=== PATIENT | male | born 1945 | race Caucasian/White ===

== ENCOUNTER 2018-01-29 13:25 | Inpatient (IN) | payer MEDICARE, BC ==
[~2018-01-29] VITALS: Ht 185.4 cm; Wt 113.4 kg
[2018-01-29 13:27] VITALS: BP 142/80
[2018-01-29 14:01] LABS: ABSOLUTE LYMPHOCYTES 0.6 thou/uL (0.8-5.3); ABSOLUTE MONOCYTES 0.6 thou/uL (0.0-1.2); ABSOLUTE NEUTROPHILS 12.5 thou/uL (1.6-8.1); BASOPHILS 0.2 %; EOSINOPHILS 0.3 %; HEMATOCRIT 38.9 % (42.0-52.0); HEMOGLOBIN 13.4 gm/dL (14.0-18.0); LYMPHOCYTES 4.5 %; MCH 30.7 pg (26.0-34.0); MCHC 34.5 g/dL (28.0-37.0); MONOCYTES 4.5 %; MPV 7.3 fl. (7.2-11.1); NUCLEATED RBCS 0 /100WBC; PLATELET COUNT* 259 thou/uL (150-400); POLYS 90.5 %; RBC 4.37 mil/uL (4.50-6.00); RDW-CV 15.3 % (10.5-14.5); WBC 13.9 thou/uL (4.0-11.0)
[2018-01-29] MEDS ORDERED: ASPIR 8181 MG PO (14:09)
[2018-01-29] MEDS ORDERED: CALCIUM 600 +1 EAC1 PO (14:09)
[2018-01-29] MEDS ORDERED: LIPITOR 20 MG T20 M1 PO (14:09)
[2018-01-29] MEDS ORDERED: SINEMET 25-1001 EAC1 PO (14:10)
[2018-01-29 14:12] LABS: ANION GAP 10 mmol/L (7-16); BUN 9 mg/dL (7-18); CALCIUM 8.7 mg/dL (8.5-10.1); CHLORIDE 84 mmol/L (98-107); CO2 27 mmol/L (21-32); CREATININE 0.8 mg/dL (0.6-1.3); GLUCOSE 89 mg/dL (70-99); POTASSIUM 3.6 mmol/L (3.5-5.1); SODIUM 121 mmol/L (136-145)
[2018-01-29] MEDS ORDERED: CLONAZEPAM 0.50.5 M1 PO (14:12)
[2018-01-29] MEDS ORDERED: VITAMIN B-12500 MCG PO (14:13)
[2018-01-29] MEDS ORDERED: FISH OIL 1,001000 M2 PO (14:14)
[2018-01-29] MEDS ORDERED: AMARYL2 MG PO (14:14)
[2018-01-29] MEDS ORDERED: FOLIC ACID1 MG PO (14:14)
[2018-01-29] MEDS ORDERED: LEXAPRO20 MG PO (14:14)
[2018-01-29] MEDS ORDERED: LACTULOSE10 GM/152 PO (14:15)
[2018-01-29] MEDS ORDERED: METAMUCIL0.52 GM PO (14:15)
[2018-01-29] MEDS ORDERED: OXYBUTYNIN 5 MG5 M2 PO (14:16)
[2018-01-29] MEDS ORDERED: SINGULAIR 10 MG10 M1 PO (14:16)
[2018-01-29] MEDS ORDERED: METFORMIN HCL500 MG PO ×2 (14:16)
[2018-01-29] MEDS ORDERED: VENTOLIN HFA 1818 GM INH (14:17)
[2018-01-29] MEDS ORDERED: PENTOXIFYLLINE400 MG PO (14:17)
[2018-01-29] MEDS ORDERED: PROTONIX40 M1 PO (14:17)
[2018-01-29] MEDS ORDERED: VITAMIN D3400 UNIT PO (14:18)
[2018-01-29] MEDS ORDERED: SPIRIVA INH (14:18)
[2018-01-29] MEDS ORDERED: EFFEXOR 5050 MG/1 T1 PO (14:18)
[2018-01-29] MEDS ORDERED: ROPINIROLE HCL2 MG PO (14:18)
[2018-01-29] MEDS ORDERED: FLOMAX0.4 MG PO (14:18)
[2018-01-29 14:19] LABS: ALBUMIN 3.3 g/dL (3.4-5.0); ALKALINE PHOSPHATASE 146 U/L (46-116); SGOT 28 U/L (15-37); SGPT 30 U/L (30-65); TOTAL BILIRUBIN 0.4 mg/dL (<0.1-1.0); TOTAL PROTEIN 6.8 g/dL (6.4-8.2); TROPONIN-I LEVEL <0.06 ng/mL (<0.06)
[2018-01-29] MEDS ORDERED: ALBUTEROL2.5 MG/31 INH (14:19)
[2018-01-29] MEDS ORDERED: EXCEDRIN CAPLE1 EACH PO (14:19)
[2018-01-29] MEDS ORDERED: HYDROXYZINE HCL25 M1 PO (14:20)
--- NOTE | 2018-01-29 15:50 | NUR ---
PTS SON IN LAW DAMARIS PARIKH REPORTS THAT HIS SUKH PARIKH WHO IS DPOA IS WORKING ON SECURING PLACEMENT FOR PT AT [facility].
[2018-01-29 16:17] LABS: URINE BILIRUBIN NEGATIVE (Negative); URINE BLOOD NEGATIVE (Negative); URINE CLARITY CLEAR; URINE COLOR YELLOW; URINE GLUCOSE-RANDOM NEGATIVE (Negative); URINE KETONES NEGATIVE (Negative); URINE LEUKOCYTES NEGATIVE (Negative); URINE NITRITE NEGATIVE (Negative); URINE PROTEIN TRACE (Negative); URINE UROBILINOGEN 0.2 E.U./dl (0.2-1.0)
[2018-01-29 17:43] VITALS: BP 142/80
--- NOTE | 2018-01-29 18:00 | NUR ---
RECIEVED REPORT. PT TRANSFERRED TO ROOM 201 VIA CART. VSS. CARDIAC MONTIORING PLACED. PT ON RA WITH O2 SAT AT 94% IVF INFUSING. PT DENIES ANY COMPLAINTS OF PAIN OR DISCOMFORT AT THIS TIME. ADMISSION HISTORY AND ASSESSMENT COMPLETED CHARTED. PT OREITNED TO ROOM AND CALL LIGHT. FALL RISK PRECAUTIONS IN PLACE.
[2018-01-29 18:12] VITALS: BP 162/82
[2018-01-29 20:00] VITALS: BP 146/81
[2018-01-30] VITALS: BP 144/80
[2018-01-30 04:00] VITALS: BP 168/91
--- NOTE | 2018-01-30 05:42 | NUR ---
ASSUMED CARE OF PT AT 1930, NURSING ASSESSMENT COMPLETED AT START OF SHIFT. PT VOICED NO CONCERNS, HOURLY ROUNDING COMPLETED, PT WEARING REAL ESTATE LEGAL ASSISTANT, TRACING SINUS ARHYTHMIA/ECTOPIC ATRIAL RHYTHM WITH PVCS. PT WORE CPAP AT NIGHT, FALL PRECAUTIONS IN PLACE, CALL LIGHT WITHIN REACH.
[2018-01-30 08:00] VITALS: BP 160/84
[2018-01-30 12:59] LABS: ABSOLUTE BASOPHILS 0.1 thou/uL (0.0-0.2); ABSOLUTE LYMPHOCYTES 1.4 thou/uL (0.8-5.3); ABSOLUTE MONOCYTES 0.7 thou/uL (0.0-1.2); ABSOLUTE NEUTROPHILS 9.2 thou/uL (1.6-8.1); BASOPHILS 0.5 %; EOSINOPHILS 0.3 %; HEMOGLOBIN 14.7 gm/dL (14.0-18.0); LYMPHOCYTES 12.4 %; MCH 30.1 pg (26.0-34.0); MCHC 33.4 g/dL (28.0-37.0); MONOCYTES 6.2 %; MPV 7.4 fl. (7.2-11.1); NUCLEATED RBCS 0 /100WBC; PLATELET COUNT* 300 thou/uL (150-400); POLYS 80.6 %; RBC 4.89 mil/uL (4.50-6.00); RDW-CV 15.2 % (10.5-14.5); WBC 11.4 thou/uL (4.0-11.0)
[2018-01-30 13:10] LABS: CALCIUM 9.4 mg/dL (8.5-10.1); CREATININE 0.7 mg/dL (0.6-1.3); MAGNESIUM 1.9 mg/dL (1.8-2.4); POTASSIUM 3.6 mmol/L (3.5-5.1)
--- NOTE | 2018-01-30 14:54 | NUR ---
RECEIVED REPORT AND ASSUMED CARE AT 0730.BP ELEVATED, OTHERWISE VSS. PT ON RA, CPAP BY BEDSIDE TO WEAR WHILE SLEEPING. PT UP WITH ASSIST TO BSC. PT MOVED TO RECLINER WITH CHAIR ALARM AND BATH COMPLETED. PT DENIES ANY COMPLAINTS OF PAIN. DISCUSSED PLAN OF CARE WITH PT. PT VERY TIRED DUE TO NOT SLEEPING WELL THROUGHT THE NIGHT R/T FREQUENT URINATION. PT VERBALIZED UNDERSTANDING OF PLAN OF CARE. PT A&O X3. BED IN LOWEST POSITION, CALL LIGHT WITHIN REACH, BED ALARM ON WHEN PT IN BED. WILL CONTINUE TO MONITOR FOR REMAINDER OF THE SHIFT
--- NOTE | 2018-01-30 15:43 | NUR ---
Pt having Echo, spoke with dtr. Pt has been living at [facility], but will be moving to [facility] after this hospital stay. Dtr stated that [facility] does not have enough staff coverage and Pt requires more oversight. Pt carries a dementia dx. Pt is independent with ADLS. Pt has a walker but has not had to use it recently. Pt sleeps with a cpap at night. Hx of set up through [place] [facility] approx 1 year ago, does not remember the name of the agency. Hx of skilled at [facility]. Plan is for Pt to [place] home, family will transport.
--- NOTE | 2018-01-30 16:22 | 2DMMODE ---
[place] [address] 2 D/M-MODE ECHOCARDIOGRAM Name: EDILBERTO WISE Room: [address] ADM IN .R.#: [id number] Admission: 01/29/18 Attend Phys: Bozena Pérez Discharge: Date of : 47 Date of Service: 01/30/18 1622 Report #: [id number] THIS REPORT FOR: //name// APPROVED REPORT Study performed: 01/30/2018 15:22:53 EXAM: Comprehensive 2D, Doppler, and color-flow Echocardiogram Patient Location: In-Patient Room #: 201 Status: routine BSA: 2.39 HR: 79 bpm BP: 160/84 mmHg Rhythm: NSR Indications hyponatremia 2D Dimensions LVEF(%): 71.86 (>50%) IVSd: 16.10 (7-11mm) LVOT Diam: 21.11 (18-24mm) LVDd: 45.93 mm PWd: 15.74 (7-11mm) LVDs: 27.11 (25-40mm) Aortic Root: 37.10 mm Davis's LVEF: 71.86 % Volumes Left Atrial Volume (Systole) LA ESV Index: 28.50 mL/m2 Aortic Valve AoV Peak Bernabe.: 2.53 m/s AO Peak Gr.: 25.67 mmHg LVOT Max P.20 mmHg AO Mean Gr.: 14.52 mmHg LVOT Mean P.59 mmHg LVOT Max V: 1.14 m/s AO V2 VTI: 46.67 cm LVOT Mean V: 0.74 m/s ILENE (VTI): 1.59 cm2 LVOT V1 VTI: 21.23 cm TDI Lateral E' Bernabe.: 0.11 m/s Pulmonary Valve PV Peak Bernabe.: 1.39 m/s PV Peak Gr.: 7.77 [place] [address] 2 D/M-MODE ECHOCARDIOGRAM Name: EDILBERTO WISE Room: [address] IN .R.#: [id number] Admission: 01/29/18 Attend Phys: Bozena Pérez Discharge: Date of : 47 Date of Service: 01/30/18 1622 Report #: [id number] Left Ventricle The left ventricle is normal size. There is normal LV segmental wall motion. Mild concentric left ventricular hypertrophy. Left ventricular systolic function is normal. The left ventricular ejection fraction is within the normal range. LVEF is 60-65%. This study is not technically sufficient to allow evaluation of the LV diastolic function. Right Ventricle The right ventricle is normal size. The right ventricular systolic function is normal. Atria The left atrium size is normal. The right atrium size is normal. Aortic Valve Mild aortic valve sclerosis. No aortic regurgitation is present. Mild aortic stenosis. Mitral Valve Mild mitral annular calcification. There is no mitral valve regurgitation noted. No evidence of mitral valve stenosis. Tricuspid Valve The tricuspid valve is normal in structure. Unable to assess PA pressure. Trace tricuspid regurgitation. Pulmonic Valve The pulmonary valve is normal in structure. There is no pulmonic valvular regurgitation. Great Vessels The aortic root is normal in size. IVC is normal in size and collapses with >50% inspiration Pericardium There is no pericardial effusion. <Conclusion> The left ventricle is normal size. Mild concentric left ventricular hypertrophy. Left ventricular systolic function is normal. The left ventricular ejection fraction is within [place] [address] 2 D/M-MODE ECHOCARDIOGRAM Name: EDILBERTO WISE Room: [address] IN ..#: [id number] Admission: 01/29/18 Attend Phys: Bozena Pérez Discharge: Date of : 47 Date of Service: 01/30/18 1622 Report #: [id number] LVEF is 60-65%. This study is not technically sufficient to allow evaluation of the LV diastolic function. The right ventricle is normal size. The left atrium size is normal. Mild aortic valve sclerosis. No aortic regurgitation is present. Mild aortic stenosis. Mild mitral annular calcification. There is no mitral valve regurgitation noted. No evidence of mitral valve stenosis. The tricuspid valve is normal in structure. IVC is normal in size and collapses with >50% inspiration There is no pericardial effusion. There is normal LV segmental wall motion. <ELECTRONICALLY SIGNED> By: Ashwin Razo MD, FACC 01/30/18 162 162 21 Ashwin Razo MD, FACC /INF
--- NOTE | 2018-01-30 16:30 | EKG ---
[place] [address] ELECTROCARDIOGRAM REPORT Name: EDILBERTO WISE Room: [address] ADM IN .R.#: [id number] Admission: 01/29/18 Attend Phys: Janeth Melendez Discharge: Date of : 47 Report #: [id number] THIS REPORT FOR: //name// [facility] ED Test Date: 2018-01-29 Test Time: 14:11:16 Pat Name: EDILBERTO WISE Department: Room: [facility] Gender: Ultrasound Specialist: Taryn COVINGTON : 1945 Requested By: Kenna Hurley Order Number: [id number] MD: Ashwin Razo Measurements Intervals Olds Rate: 87 P: -77 MA: 221 QRS: -3 QRSD: 108 T: 68 QT: 395 QTc: 476 Interpretive Statements Sinus rhythm Sinus pause Prolonged MA interval Consider left atrial enlargement Borderline prolonged QT interval No previous ECG available for comparison Electronically Signed On 01-30-2018 16:30:37 CDT by Ashwin Razo [email or web address] <ELECTRONICALLY SIGNED> By: Ashwin Razo MD, [facility] 01/30/18 1630 1411 1411 Ashwin Razo MD, [facility] /EPI
[2018-01-30 16:31] VITALS: BP 162/89
--- NOTE | 2018-01-30 18:14 | NUR ---
PT RESTING IN ROOM. VSS. CARDIAC MONITORING IN PLACE. PT DENIES ANY COMPLAINTS OF PAIN. PT UP WITH ASSIST TO [facility] WITH WALKER FOR AMBULATING. PT ON RA. PT DENIES ANY COMPLAINTS OF PAIN. PLAN OF CARE DISCUSSED WITH PT, VERBALIZED UNDERSTANDING. PT WILL BE D/C TO [facility]ED [facility]IV[facility], CASE MANAGEMENT IS AWARE. PT PROGRESSING TOWARDS GOALS. WILL CONTINUE TO MONITOR FOR REMAINDER OF THE SHIFT
[2018-01-30 20:00] VITALS: BP 148/71
[2018-01-31] VITALS: BP 140/83
--- NOTE | 2018-01-31 03:10 | NUR ---
ASSUMED CARE OF PT AT 1900. PT IS ALERT ASND ORIENTED X'S 3. VSS. PERRLA. PT IS UP WITH STAND BY ASSIST. LUNGS ARE COARSE. PT IS ON CPAP AT [facility]. PT IS IN SINUS RYTHM WITH A PROLONGED MT INTERVAL. PT IS SLEEPING QUIETLY IN BED. RESPIRATIONS ARE EVEN AND NONLABORED. WILL CONTINUE TO MONITOR PT.
[2018-01-31 04:00] VITALS: BP 109/53
[2018-01-31 05:08] LABS: HEMATOCRIT 36.9 % (42.0-52.0); MCH 30.5 pg (26.0-34.0); MCHC 34.2 g/dL (28.0-37.0); MCV 89.1 fL (80.0-100.0); MPV 7.6 fl. (7.2-11.1); RBC 4.15 mil/uL (4.50-6.00)
[2018-01-31 05:52] LABS: CALCIUM 8.7 mg/dL (8.5-10.1); CREATININE 0.6 mg/dL (0.6-1.3); POTASSIUM 3.5 mmol/L (3.5-5.1)
[2018-01-31 05:57] LABS: HEMOGLOBIN 12.6 gm/dL (14.0-18.0)
[2018-01-31 08:00] VITALS: BP 151/76
--- NOTE | 2018-01-31 11:43 | NUR ---
ASSUMED CARE OF PT AT 0730. PT SITTING UP IN THE RECLINER WAITING FOR BREAKFAST. PT A&0X4, FORGETFUL AT TIMES- DENIES ANY PAIN OR SHORTNESS OF BREATH AT THIS TIME. PT TRACING SR WITH FIRST DEGREE AND PAC'S ON THE POLICE DETENTION ATTENDANT. ON RA SAT 93%. COARSE LUNG SOUNDS NOTED, PT HAS PRODUCTIVE COUGH, IS ENCOURAGED TO USE EVERY 1 HOUR. PT USES CPAP AT NOC AND WHEN SLEEPING. PT UP WITH 1 ASSIST AND WALKER TO BATHROOM. PT GOAL FOR TODAY IS TO WORK WITH PT AND OT, UP TO CHAIR FOR MEALS, INCREASE ACTIVITY AND POSSIBLE DISCHARGE TO FACILITY. AM ASSESSMENT CHARTED, MEDICATIONS PER MAR. PT REPOSITIONS SELF WITH REMINDERS. HOURLY ROUNDING OBSERVED. BED IN LOW POSITION. BED ALARM IN PLACE. FALL PRECAUTIONS IN PLACE. CALL LIGHT WITHIN REACH. WILL CONTINUE PLAN OF CARE.
[2018-01-31 11:49] VITALS: BP 146/84
[2018-01-31 15:28] VITALS: BP 163/90
--- NOTE | 2018-01-31 16:05 | NUR ---
Pt discharging today to [facility]. Chart copied and dtr will transport. p: [phone]
[2018-01-31] MEDS ORDERED: EXCEDRIN CAPLE1 EACH PO (16:18)
[2018-01-31 16:19] VITALS: BP 163/90
--- NOTE | 2018-01-31 17:00 | NUR ---
DISCHARGE ORDERS RECEIVED FOR PT TO DISCHARGE TO [facility]. DISCHARGE INSTRUCTIONS, CARE NOTES AND FOLLOW UP APPTS GIVEN TO PT. PT COMMUNICATES UNDERSTANDING OF DISCHARGE TEACHING. IV AND BIOMASS PLANT TECHNICIAN REMOVED. DISCHARGE INSTRUCTIONS ALSO COPIED AND PLACED IN FOLDER FOR FACILITY. REPORT CALLED TO ELTON AT [facility]. DAUGHTERAKOSUA CALLED AND UPDATED. DAUGHTER TO TRANSPORT PT TO FACILITY. OUTSIDE OF HOSPITAL DNR ORDER OBTAINED FROM DR PEREZ. PT DAUGHTER TO GET COPY OF DNR FORM FROM [facility] TO BRING TO [facility]. PT AWARE AND UNDERSTANDS FLUID RESTRICTION. PT DISCHARGED WITH ALL BELONGINGS AND PAPERWORK VIA WHEELCHAIR WITH NURSING STAFF TO DAUGHTERS OWN PERSONAL VEHICLE.
== END 2018-01-31 16:55 | disposition home or self-care (01) | DRG 641 ==
LOC: M.ERS 13:25 → M.2W 16:24 → M.TBA-ER 16:24 → M.2W 18:05
PROVIDERS: Nurse Practitioner Family; ADMIT Internal Medicine
PROC: B24BZZ4 Ultrasonography of Heart with Aorta, Transesophageal (ICD-10-PCS; principal; 2018-01-30)
DX: R63.1 Polydipsia (principal); E87.1 Hypo-osmolality and hyponatremia; R65.10 Systemic inflammatory response syndrome (SIRS) of non-infectious origin without acute organ dysfunction; G20 Parkinson's disease; F02.80 Dementia in other diseases classified elsewhere, unspecified severity, without behavioral disturbance, psychotic disturbance, mood disturbance, and anxiety; R29.6 Repeated falls; E11.9 Type 2 diabetes mellitus without complications; I10 Essential (primary) hypertension; J44.9 Chronic obstructive pulmonary disease, unspecified; E78.5 Hyperlipidemia, unspecified; K21.9 Gastro-esophageal reflux disease without esophagitis; Z79.82 Long term (current) use of aspirin; Z79.84 Long term (current) use of oral hypoglycemic drugs; Z79.899 Other long term (current) drug therapy; Z88.0 Allergy status to penicillin; Z82.49 Family history of ischemic heart disease and other diseases of the circulatory system